=== PATIENT | male | born 1985 ===

== ENCOUNTER 2023-03-25 15:22 | Emergency (ER) | payer OTHER ==
[~2023-03-25] VITALS: Ht 167.6 cm; Wt 98.0 kg
[2023-03-25 15:39] VITALS: BP 124/90; PULSE 98; RESP 17; TEMP 98.6
== END 2023-03-25 19:28 | disposition home or self-care (01) ==
LOC: ER 15:22
DX: S00.03XA Contusion of scalp, initial encounter (principal); Y04.0XXA Assault by unarmed brawl or fight, initial encounter; Y93.89 Activity, other specified; Y92.89 Other specified places as the place of occurrence of the external cause; Y99.8 Other external cause status
CPT/HCPCS: 99281